=== PATIENT | male | born 2000 | race African-American/Black ===

== ENCOUNTER 2022-07-23 12:31 | Outpatient (CLI) | payer BC, SELFPAY ==
--- NOTE | ~2022-07-23 | MR_ITS ---
EXAMINATION: MR knee LT wo con DATE: 07/23/2022 13:21 INDICATION: Left knee pain TECHNIQUE: Magnetic resonance imaging (MRI) of the left knee was performed without intravenous contra st. Sequences included coronal PD-weighted FSE, coronal PD-weighted FS FSE, sagittal T2-weighted FSE , sagittal PD-weighted FS FSE and axial PD weighted fat saturated FSE. COMPARISON: None. FINDINGS: Medial compartment: Medial meniscus is normal. Mild partial-thickness cartilage loss along the anterior medial tibial adalid teau with smooth chondral surface. Shallow chondral ulceration with more localized partial-thickness cartilage loss and mild chondral surface regularity along the anterior weightbearing medial femoral c ondyle. Lateral compartment: Lateral meniscus is normal. Articular cartilage is normal. Patellofemoral compartment: Articular cartilage is normal. Ligaments and tendons: Anterior and posterior cruciate ligaments are normal. The medial collateral ligament and fibular jaron ateral ligament complex are normal. The extensor mechanism is normal. The visualized medial and later al hamstring tendons as well as the iliotibial band are normal. Fluid: Physiologic amount of fluid in the joint space. No loose osteochondral bodies identified. Osseous/other: Nonspecific thin rim of increased T2 signal along the deep side of the cortex at the patella and at t he anterior tibial tuberosity, the former which has been reported as a transient subacute finding of nonspecific knee injury. There is mild marrow edema along the fibular side of the proximal tibiofibul ar articulation which could be due to overlying chondromalacia or sequela of posttraumatic bone contu maged. No fracture or pathologic marrow replacing process. IMPRESSION: 1. Shallow chondral ulceration with mild chondral surface regularity at the anterior weightbearing me dial femoral condyle. Juxtaposed mild thinning of the cartilage but with smooth chondral surface at t he medial tibial plateau. 2. Mild subarticular marrow edema at the proximal fibula along the proximal tibiofibular articulation which could be due to overlying chondromalacia or posttraumatic bone contusion. 2. Nonspecific mild linear increased fluid signal along the deep margin of the patellar cortex as wel l as at the anterior tibial tuberosity. The former has been described as a transient subacute finding the setting of knee injury or surgery. Reviewed, dictated and finalized at location A. [facility] [employer] IMPRESSION: 1. Shallow chondral ulceration with mild chondral surface regularity at the ant erior weightbearing medial femoral condyle. Juxtaposed mild thinning of the car tilage but with smooth chondral surface at the medial tibial plateau. 2. Mild subarticular marrow edema at the proximal fibula along the proximal tib iofibular articulation which could be due to overlying chondromalacia or posttr aumatic bone contusion. 2. Nonspecific mild linear increased fluid signal along the deep margin of the patellar cortex as well as at the anterior tibial tuberosity. The former has be en described as a transient subacute finding the setting of knee injury or surg tan.
== END 2022-07-23 12:32 | disposition home or self-care (01) ==
PROVIDERS: PCP Family Medicine; Visit Provider Orthopaedic Surgery
DX: M25.562 Pain in left knee (principal)
CPT/HCPCS: 73721